=== PATIENT | female | born 1960 | race Caucasian/White ===

== ENCOUNTER 2017-04-09 18:38 | Inpatient (IN) | payer MEDICAID ==
[~2017-04-09] VITALS: Ht 165.1 cm; Wt 90.5 kg
[2017-04-09] MEDS ORDERED: SODIUM CHLORIDE 0.9% 1,000ML IVBOLUS ONE ×2 (19:00→20:30)
[2017-04-09] MEDS ORDERED: SODIUM CHLORIDE FLUSH 10ML SYR IVF ONE (19:00)
[2017-04-09 19:33] LABS: ASPARTATE AMINO TRANSFERASE 59 U/L (15-37)
[2017-04-09 19:35] LABS: HEMATOCRIT 34.6 % (34.6-47.8); HEMOGLOBIN 11.4 g/dL (11.7-16.4); WHITE BLOOD COUNT 11.1 x10^3/uL (3.4-10)
[2017-04-09 19:39] LABS: BLOOD UREA NITROGEN 63 mg/dL (7-18)
[2017-04-09 19:56] LABS: PH, VENOUS 7.285 pH (7.320-7.420)
[2017-04-09] MEDS ORDERED: CEFTRIAXONE PMX 2GM/50ML 50 ML IV SCH (20:30)
[2017-04-09] MEDS ORDERED: CEFTRIAXONE PMX 2GM/50ML 50 ML ONE (20:31)
[2017-04-09] MEDS ORDERED: CEFTRIAXONE PMX 2GM/50ML 50 ML IV ONE (21:00)
[2017-04-09] MEDS ORDERED: CETI10TA18 PO (21:02)
[2017-04-09] MEDS ORDERED: LORA-446 PO (21:02)
[2017-04-09] MEDS ORDERED: SERT100T5 PO (21:02)
[2017-04-09] MEDS ORDERED: ATOR40TA78 PO (21:02)
[2017-04-09] MEDS ORDERED: VALS320T2 PO (21:02)
[2017-04-09] MEDS ORDERED: SITA100T PO (21:02)
[2017-04-09] MEDS ORDERED: CHLO25TA PO (21:02)
[2017-04-09] MEDS ORDERED: CHOL200074 PO (21:02)
[2017-04-09] MEDS ORDERED: AMLO10TA2 PO (21:02)
[2017-04-09] MEDS ORDERED: DAPA10TA PO (21:02)
[2017-04-09] MEDS ORDERED: ASPI-515 PO (21:02)
[2017-04-09] MEDS ORDERED: DIPH50CA17 PO (21:02)
[2017-04-09] MEDS ORDERED: CARV-39 PO (21:02)
[2017-04-09] MEDS ORDERED: METF-688 PO (21:02)
[2017-04-09] MEDS ORDERED: GLIM1TAB2 PO (21:02)
[2017-04-09] MEDS ORDERED: NOREPINEPHRINE 4 MG in SODIUM CHLORIDE 0.9% 246 ML IV PRN (21:30)
[2017-04-09] MEDS ORDERED: LIRA0.6P2 SQ (22:23)
[2017-04-09] MEDS ORDERED: SODIUM CHLORIDE 0.9% 1,000 ML IV SCH (22:52)
[2017-04-09] MEDS ORDERED: LORazepam 1MG TABLET PO PRN (23:00)
[2017-04-09] MEDS: CEFTRIAXONE PMX 2GM/50ML 50 ML IV SCH (23:00)
[2017-04-09] MEDS ORDERED: morphine SULFATE 10 MG/ML, 1ML IVPush PRN (23:00)
[2017-04-09] MEDS ORDERED: ONDANSETRON 2MG/ML, 2ML IVPush PRN (23:00)
[2017-04-09] MEDS ORDERED: PHARMACY MAY ADJ FOR RENAL FX MC PRN (23:00)
[2017-04-09] MEDS ORDERED: LABETALOL 5MG/ML, 20ML IVPush PRN (23:00)
[2017-04-09] MEDS ORDERED: ONDANSETRON ODT 4 MG PO PRN (23:00)
[2017-04-09 23:27] LABS: BLOOD UREA NITROGEN 58 mg/dL (7-18)
[2017-04-09] MEDS: HYDROcodone/APAP 5/325 TABLET PO PRN (23:33)
[2017-04-10] MEDS: HEPARIN 5,000 UNITS/ML, 1ML SQ SCH ×3 (02:29→17:46)
[2017-04-10] MEDS: NOREPINEPHRINE 8 MG in SODIUM CHLORIDE 0.9% 242 ML IV PRN ×2 (03:02→21:39)
[2017-04-10 04:38] LABS: HEMATOCRIT 31.1 % (34.6-47.8); HEMOGLOBIN 10.3 g/dL (11.7-16.4); WHITE BLOOD COUNT 7.3 x10^3/uL (3.4-10)
[2017-04-10 04:46] LABS: ASPARTATE AMINO TRANSFERASE 57 U/L (15-37); BLOOD UREA NITROGEN 54 mg/dL (7-18)
[2017-04-10 05:32] VITALS: BP 119/68
[2017-04-10] MEDS: INSULIN ASPART 100 UNITS/ML, PEN SQ-INSULIN SCH ×4 (07:00→21:34)
[2017-04-10] MEDS ORDERED: MAGNESIUM SULFATE PMX 2GM/50ML 50 ML IV ONE ×2 (07:30)
[2017-04-10] MEDS ORDERED: CHOLECALCIFEROL 1,000 UNIT TABLET PO SCH (09:00)
[2017-04-10] MEDS: HYDROcodone/APAP 5/325 TABLET PO PRN ×2 (09:07→19:32)
[2017-04-10] MEDS ORDERED: ERGOCALCIFEROL 50,000 UNIT CAPSULE PO SCH (10:30)
[2017-04-10] MEDS: POTASSIUM CHLORIDE 20 MEQ TAB.ER.PRT PO SCH ×2 (10:43→21:35)
[2017-04-10] MEDS: ASPIRIN 81 MG TABLET EC PO SCH (10:44)
[2017-04-10] MEDS: SERTRALINE 100MG TABLET PO SCH (10:44)
[2017-04-10] MEDS: SODIUM CHLORIDE 0.9% 1,000 ML IV SCH (19:26)
[2017-04-10] MEDS: ATORVASTATIN 80 MG TABLET PO SCH (21:35)
[2017-04-11] MEDS: HEPARIN 5,000 UNITS/ML, 1ML SQ SCH ×3 (00:36→16:17)
[2017-04-11] MEDS: CEFTRIAXONE PMX 2GM/50ML 50 ML IV SCH (00:36)
[2017-04-11] MEDS: HYDROcodone/APAP 5/325 TABLET PO PRN ×2 (02:03→20:41)
[2017-04-11] MEDS: SODIUM CHLORIDE 0.9% 1,000 ML IV SCH (03:29)
[2017-04-11 04:00] VITALS: BP 121/65
[2017-04-11] MEDS: INSULIN ASPART 100 UNITS/ML, PEN SQ-INSULIN SCH ×4 (07:29→20:41)
[2017-04-11 07:40] LABS: HEMATOCRIT 29.9 % (34.6-47.8); HEMOGLOBIN 10.1 g/dL (11.7-16.4); WHITE BLOOD COUNT 5.4 x10^3/uL (3.4-10)
[2017-04-11 07:51] LABS: BLOOD UREA NITROGEN 27 mg/dL (7-18)
[2017-04-11] MEDS: SERTRALINE 100MG TABLET PO SCH (08:36)
[2017-04-11] MEDS: ASPIRIN 81 MG TABLET EC PO SCH (08:36)
[2017-04-11] MEDS: POTASSIUM CHLORIDE 20 MEQ TAB.ER.PRT PO SCH ×2 (09:01→20:40)
[2017-04-11] MEDS ORDERED: MAGNESIUM SULFATE PMX 2GM/50ML 50 ML IV ONE (11:30)
[2017-04-11 20:38] VITALS: BP 115/77
[2017-04-11] MEDS: ATORVASTATIN 80 MG TABLET PO SCH (20:40)
[2017-04-12] MEDS: CEFTRIAXONE PMX 2GM/50ML 50 ML IV SCH (00:36)
[2017-04-12] MEDS: HEPARIN 5,000 UNITS/ML, 1ML SQ SCH ×3 (00:37→16:48)
[2017-04-12] MEDS: SODIUM CHLORIDE 0.9% 1,000 ML IV SCH (00:37)
[2017-04-12 00:49] VITALS: BP 130/84
[2017-04-12 05:13] LABS: HEMATOCRIT 34.2 % (34.6-47.8); HEMOGLOBIN 11.4 g/dL (11.7-16.4); WHITE BLOOD COUNT 8.3 x10^3/uL (3.4-10)
[2017-04-12 05:35] LABS: BLOOD UREA NITROGEN 24 mg/dL (7-18)
[2017-04-12] MEDS: INSULIN ASPART 100 UNITS/ML, PEN SQ-INSULIN SCH ×4 (07:00→20:17)
[2017-04-12 08:37] VITALS: BP 107/71
[2017-04-12] MEDS: SERTRALINE 100MG TABLET PO SCH (08:41)
[2017-04-12] MEDS: ASPIRIN 81 MG TABLET EC PO SCH (08:41)
[2017-04-12 13:13] VITALS: BP 122/83
[2017-04-12 18:40] VITALS: BP 122/87
[2017-04-12] MEDS: ATORVASTATIN 80 MG TABLET PO SCH (20:12)
[2017-04-12] MEDS: HYDROcodone/APAP 5/325 TABLET PO PRN (20:12)
[2017-04-13] MEDS: CEFTRIAXONE PMX 2GM/50ML 50 ML IV SCH ×2 (00:31→23:38)
[2017-04-13] MEDS: HEPARIN 5,000 UNITS/ML, 1ML SQ SCH ×4 (00:31→23:38)
[2017-04-13 02:42] VITALS: BP 153/96
[2017-04-13] MEDS: INSULIN ASPART 100 UNITS/ML, PEN SQ-INSULIN SCH ×4 (07:00→20:02)
[2017-04-13 08:30] VITALS: BP 109/69
[2017-04-13] MEDS: ASPIRIN 81 MG TABLET EC PO SCH (09:20)
[2017-04-13] MEDS: SODIUM CHLORIDE 0.9% 1,000 ML IV SCH ×2 (09:20→23:42)
[2017-04-13] MEDS: SERTRALINE 100MG TABLET PO SCH (09:20)
[2017-04-13 15:38] VITALS: BP 143/92
[2017-04-13 19:18] VITALS: BP 143/84
[2017-04-13] MEDS: ATORVASTATIN 80 MG TABLET PO SCH (20:00)
[2017-04-13] MEDS: HYDROcodone/APAP 5/325 TABLET PO PRN (23:37)
[2017-04-14] MEDS: INSULIN ASPART 100 UNITS/ML, PEN SQ-INSULIN SCH ×2 (07:00→11:00)
[2017-04-14] MEDS: ASPIRIN 81 MG TABLET EC PO SCH (08:00)
[2017-04-14] MEDS: SERTRALINE 100MG TABLET PO SCH (08:15)
[2017-04-14] MEDS: HEPARIN 5,000 UNITS/ML, 1ML SQ SCH (08:15)
[2017-04-14] MEDS ORDERED: CEFD300C37 PO (10:45)
[2017-04-14] MEDS ORDERED: POTASSIUM CHLORIDE 20 MEQ TAB.ER.PRT PO ONE (11:00)
[2017-04-14 11:24] LABS: BLOOD UREA NITROGEN 20 mg/dL (7-18)
[2017-04-14] MEDS ORDERED: PNEUMOCOCCAL 23 VACCINE IM-VACC ONE (12:30)
[2017-04-14 13:02] VITALS: BP 150/97
== END 2017-04-14 14:00 | disposition home or self-care (01) | DRG 871 ==
LOC: ED 21:58 → EDIP 22:01 → CCU 23:21 → 5SO 04-11 14:53
PROVIDERS: ADMIT Hospitalist; ATTEND Hospitalist
PROC: 02HV33Z Insertion of Infusion Device into Superior Vena Cava, Percutaneous Approach (ICD-10-PCS; principal; 2017-04-09)
DX: A41.9 Sepsis, unspecified organism (principal); R65.21 Severe sepsis with septic shock; N17.0 Acute kidney failure with tubular necrosis; E87.2 Acidosis; E44.1 Mild protein-calorie malnutrition; E87.1 Hypo-osmolality and hyponatremia; E11.65 Type 2 diabetes mellitus with hyperglycemia; E87.6 Hypokalemia; I10 Essential (primary) hypertension; B96.20 Unspecified Escherichia coli [E. coli] as the cause of diseases classified elsewhere; D64.9 Anemia, unspecified; R74.0 Nonspecific elevation of levels of transaminase and lactic acid dehydrogenase [LDH]; E83.42 Hypomagnesemia; K76.0 Fatty (change of) liver, not elsewhere classified; F41.9 Anxiety disorder, unspecified; M19.079 Primary osteoarthritis, unspecified ankle and foot; N30.90 Cystitis, unspecified without hematuria; W18.30XA Fall on same level, unspecified, initial encounter; Y92.009 Unspecified place in unspecified non-institutional (private) residence as the place of occurrence of the external cause; Z83.3 Family history of diabetes mellitus; Z68.33 Body mass index [BMI] 33.0-33.9, adult; Z79.84 Long term (current) use of oral hypoglycemic drugs; Z79.899 Other long term (current) drug therapy
CPT/HCPCS: 36415; 71010; 76700; 80048; 80053; 81001; 82010; 82306; 82436; 82570; 82803; 82962; 83036; 83605; 83735; 83970; 84133; 84145; 84156; 84300; 84439; 85025; 87040; 87077; 87081; 87086; 87186; 87324; 87328; 87329; 89055; 90732; 93005; 93306; 96361; 96365; 96366; J0696; J1644; J1815; J2270; J3475; J7030; J7050

== ENCOUNTER 2019-01-06 15:17 | Emergency (ER) | payer MEDICAID ==
[~2019-01-06] VITALS: Ht 165.1 cm; Wt 90.0 kg
[~2019-01-06 15:17] MED LIST: AMLO10TA8 PO; ASPI-515 PO; ATOR40TA78 PO; CARV-39 PO; CEFD300C37 PO; CETI10TA18 PO; CHLO25TA PO; CHOL200074 PO; DAPA10TA PO; DIPH50CA17 PO; GLIM1TAB2 PO; LIRA0.6P2 SQ; LORA-446 PO; METF-688 PO; SERT100T32 PO; SITA100T PO; VALS320T2 PO
[2019-01-06 15:32] VITALS: BP 120/72
[2019-01-06] MEDS ORDERED: IBUPROFEN 600 MG TABLET PO ONE (16:30)
--- NOTE | 2019-01-06 17:09 | NUR ---
Patient/Caregiver given discharge instructions and they have confirmed that they understand the instructions. Patient ambulatory with steady gait USING CRUTCHES. DAUGHTER WITH PT. PT LEFT WITH ALL PERSONAL BELONGINGS.
== END 2019-01-06 17:10 | disposition home or self-care (01) ==
LOC: ED 16:42
DX: S83.91XA Sprain of unspecified site of right knee, initial encounter (principal); E11.9 Type 2 diabetes mellitus without complications; X58.XXXA Exposure to other specified factors, initial encounter; Y93.89 Activity, other specified; Y92.89 Other specified places as the place of occurrence of the external cause; Y99.8 Other external cause status
CPT/HCPCS: 29505; 99283

== ENCOUNTER 2019-02-18 17:34 | Emergency (ER) | payer MEDICAID ==
[~2019-02-18] VITALS: Ht 165.1 cm; Wt 94.0 kg
--- NOTE | 2019-02-18 19:16 | NUR ---
PATIENT PRESENTS TO ED TODAY FOR BLOOD IN URINE AND LT FLANK PAIN STARTING TODAY AT 0500, PATIENT AMB WITH STEADY GAIT TO BATHROOM, UA COLLECTED AND SENT TO LAB. HX OF DM, FSBS 101 IN TRIAGE, NADN. CALL LIGHT WITHIN REACH, LABS DRAWN, AWAITING RESULTS.
[2019-02-18 19:17] LABS: BASOPHILS # (AUTO) 0.04 x10^3/uL (0-0.1); BASOPHILS % (AUTO) 0 % (0-1); EOSINOPHILS # (AUTO) 0.47 x10^3/uL (0-0.4); EOSINOPHILS % (AUTO) 5 % (1-7); LYMPHOCYTES # (AUTO) 2.96 x10^3/uL (1-3.4); LYMPHOCYTES % (AUTO) 29 % (22-44); MD NO; MEAN CORPUSCULAR HEMOGLOBIN 29.5 pg (27.0-34.8); MEAN CORPUSCULAR HGB CONC 33.3 g/dL (32.4-35.8); MEAN CORPUSCULAR VOLUME 88.7 fL (80-100); MEAN PLATELET VOLUME 7.2 fL (7.4-10.4); MONOCYTES # (AUTO) 0.79 x10^3/uL (0.2-0.8); MONOCYTES % (AUTO) 8 % (2-9); NEUTROPHILS # (AUTO) 5.91 x10^3/uL (1.8-6.8); NEUTROPHILS % (AUTO) 58 % (42-75); PLATELET COUNT 264 x10^3/uL (130-400); RED CELL DISTRIBUTION WIDTH 13.2 % (9.6-15.2)
[2019-02-18 19:23] VITALS: BP 136/71
[2019-02-18 19:29] LABS: ANION GAP 8 mmol/L (5-15); CHLORIDE 107 mmol/L (98-107)
[2019-02-18 19:33] LABS: ALANINE AMINOTRANSFERASE 27 U/L (12-78); ALKALINE PHOSPHATASE 173 U/L (45-117); BILIRUBIN,TOTAL 0.9 mg/dL (0.2-1.0); CREATININE 1.32 mg/dL (0.55-1.02); TOTAL PROTEIN 8.9 g/dL (6.4-8.2)
[2019-02-18 19:37] LABS: MICROSCOPIC AUTO
[2019-02-18 19:39] LABS: ACETONE, SERUM Negative (Negative)
[2019-02-18 19:45] LABS: CULTURE INDICATED? YES
--- NOTE | 2019-02-18 19:49 | NUR ---
RESULTS BACK, CHART UP FOR RECHECK.
--- NOTE | 2019-02-18 20:18 | NUR ---
Patient/Caregiver given discharge instructions and they have confirmed that they understand the instructions. Patient ambulatory with steady gait.
== END 2019-02-18 20:19 | disposition home or self-care (01) ==
LOC: ED 19:28
DX: R31.9 Hematuria, unspecified (principal); I10 Essential (primary) hypertension; E11.9 Type 2 diabetes mellitus without complications; E66.9 Obesity, unspecified; Z87.891 Personal history of nicotine dependence
CPT/HCPCS: 36415; 80053; 81001; 82010; 82962; 83930; 85025; 87086; 99283